=== PATIENT | male | born 1940 | race Caucasian/White ===

== ENCOUNTER 2021-04-27 09:52 | Day surgery (SDC) | payer OTHER ==
[2021-04-27] VITALS (15 sets, daily range): BP systolic 121–175; BP diastolic 68–92
[~2021-04-27] VITALS: Ht 175.3 cm; Wt 72.6 kg
[~2021-04-27 09:52] MED LIST: 0.9%NACL 1000ML 1,000 ML IV ONE; AEC81 PO; IOHEXOL-350 50ML VIAL IV ONE; METO50TA9 PO; MULT-1271 PO; TAMS-1 PO
[2021-04-27] MEDS ORDERED: PROPOFOL 10 MG/ML 20ML VIAL IV ONE (10:48)
[2021-04-27] MEDS ORDERED: SUCCINYLCHOLINE 200MG/10ML SYR ONE (10:48)
[2021-04-27] MEDS ORDERED: ROCURONIUM 10MG/1ML SYR 10 MG/ML ML ONE (10:53)
[2021-04-27] MEDS ORDERED: AMLO2.5T4 PO (11:40)
[2021-04-27] MEDS ORDERED: METO-391 PO (11:40)
[2021-04-27] MEDS ORDERED: INDOMETHACIN 50 MG SUPP.RECT RC SCH (12:00)
[2021-04-27] MEDS ORDERED: FENTANYL CITRATE PF 50 MCG/1 ML 2ML VIAL ONE (12:28)
[2021-04-27] MEDS ORDERED: HYDRALAZINE 20MG/ML VIAL ONE (13:37)
== END 2021-04-27 15:00 | disposition home or self-care (01) ==
LOC: DAH 09:52 → ENDO 09:52
PROVIDERS: ATTEND Internal Medicine Gastroenterology
DX: Z46.59 Encounter for fitting and adjustment of other gastrointestinal appliance and device (principal); Z20.822 Contact with and (suspected) exposure to COVID-19; I10 Essential (primary) hypertension; M19.90 Unspecified osteoarthritis, unspecified site; K80.32 Calculus of bile duct with acute cholangitis without obstruction; R63.4 Abnormal weight loss; I25.10 Atherosclerotic heart disease of native coronary artery without angina pectoris; E78.5 Hyperlipidemia, unspecified; Z86.010 Personal history of colon polyps; Z95.1 Presence of aortocoronary bypass graft; Z90.49 Acquired absence of other specified parts of digestive tract; Z98.890 Other specified postprocedural states; Z79.899 Other long term (current) drug therapy; Z68.25 Body mass index [BMI] 25.0-25.9, adult; Z79.01 Long term (current) use of anticoagulants; Z79.82 Long term (current) use of aspirin
CPT/HCPCS: 43260; 74329; 87635; 93005; A4215; A4221; A4223; A4606; A4663; C1769; C1773; C9803; J0330; J0360; J2704; J3010; J7030; Q9967; 43275; 74330